=== PATIENT | male | born 1950 | race Caucasian/White ===

== ENCOUNTER 2022-02-04 13:36 | Inpatient (IN) | payer OTHER ==
[2022-02-04] MEDS ORDERED: ONDANSETRON *ODT* 4 MG TABLET SL PRN (16:06)
[2022-02-04] MEDS ORDERED: NICOTINE POLACRILEX 4 MG GUM BUC PRN (16:06)
[2022-02-04] MEDS ORDERED: MAGNESIUM HYDROX 2400MG/30ML ORAL SUSPENSION 30 ML CUP PO PRN (16:06)
[2022-02-04] MEDS ORDERED: ACETAMINOPHEN 325 MG TABLET (FP) PO PRN ×2 (16:06)
[2022-02-04] MEDS ORDERED: MAGNESIUM CITRATE 300 ML BOTTLE PO PRN (16:06)
[2022-02-04] MEDS ORDERED: LOPERAMIDE HCL 2 MG CAPSULE PO PRN (16:06)
[2022-02-04] MEDS ORDERED: MENTHOL/PHENOL 1 EACH UD MM PRN (16:06)
[2022-02-04] MEDS ORDERED: MAG HYDROX/AL HYDROX/SIMETH 30 ML UNIT-DOSE CUP PO PRN (16:06)
[2022-02-04] MEDS ORDERED: LORazepam 1 MG TABLET PO PRN (16:20)
[2022-02-04] MEDS ORDERED: LORazepam 2 MG TABLET PO ONE (16:20)
[2022-02-04] MEDS: hydrOXYzine PAMOATE 25 MG CAPSULE (FP) PO SCH ×2 (20:55→23:07)
[2022-02-04] MEDS: LORazepam 2 MG TABLET PO SCH ×2 (20:58→23:07)
[2022-02-04] MEDS ORDERED: MELATONIN 5 MG TABLETS PO SCH (22:00)
[2022-02-04] MEDS: THIAMINE HCL 100 MG TABLET (FP) PO SCH (23:07)
[2022-02-05] MEDS: hydrOXYzine PAMOATE 25 MG CAPSULE (FP) PO SCH ×5 (06:26→22:15)
[2022-02-05] MEDS: LORazepam 2 MG TABLET PO SCH ×4 (06:26→22:14)
[2022-02-05 10:02] LABS: BASO % 0.4 % (0-2.0); EOS % 0.9 % (0-4.5); HEMATOCRIT 38.7 % (35.4-49); HEMOGLOBIN 13.1 GM/dL (11.7-16.9); LYMPH % 36.8 % (8-40); MCH 29.8 pg (25.7-33.7); MCHC 33.8 g/dl (32.0-35.9); MEAN CELL VOLUME 88.2 fl (80-96); MONO % 9.8 % (3.8-10.2); NEUT % 52.1 % (42.8-82.8); PLATELET COUNT 269 10^3/uL (134-434); RBC 4.38 M/mm3 (4.00-5.60); RDW 15.6 % (11.9-15.9); WHITE BLOOD COUNT 6.5 K/mm3 (4.0-10.0)
[2022-02-05 10:05] LABS: ALBUMIN 3.4 g/dl (3.4-5.0); BLOOD UREA NITROGEN 11.5 mg/dL (7-18); CALCIUM 8.5 mg/dL (8.5-10.1)
[2022-02-05 10:08] LABS: CREATININE 0.9 mg/dL (0.55-1.3)
[2022-02-05 10:09] LABS: BILIRUBIN,TOTAL 0.7 mg/dL (0.2-1); TOT PROT 6.5 g/dl (6.4-8.2)
[2022-02-05] MEDS: PRENATAL VITAMINS W/ FOLIC ACID TABLET (FP) PO SCH (10:45)
[2022-02-05] MEDS: METHOCARBAMOL 500 MG TABLET PO PRN (10:46)
[2022-02-05] MEDS: FLUoxetine HCL 20 MG CAPSULE PO SCH (15:00)
[2022-02-05] MEDS: lamoTRIgine 100 MG TABLET PO SCH (15:01)
[2022-02-05] MEDS ORDERED: amLODIPine BESYLATE 5 MG TABLET (FP) PO SCH (15:45)
[2022-02-05] MEDS: amLODIPine BESYLATE 10 MG TABLET (FP) PO SCH (15:46)
[2022-02-05] MEDS: QUEtiapine FUMARATE 50 MG TABLET PO SCH (22:14)
[2022-02-05] MEDS: THIAMINE HCL 100 MG TABLET (FP) PO SCH (22:15)
[2022-02-06] MEDS: hydrOXYzine PAMOATE 25 MG CAPSULE (FP) PO SCH ×5 (06:38→22:12)
[2022-02-06] MEDS: LORazepam 1 MG TABLET PO SCH ×4 (06:39→23:41)
[2022-02-06 10:08] LABS: SARS-CoV-2 NAA Not Detected (Not Detected)
[2022-02-06] MEDS: PRENATAL VITAMINS W/ FOLIC ACID TABLET (FP) PO SCH (10:21)
[2022-02-06] MEDS: lamoTRIgine 100 MG TABLET PO SCH (10:22)
[2022-02-06] MEDS: FLUoxetine HCL 20 MG CAPSULE PO SCH (10:22)
[2022-02-06] MEDS: amLODIPine BESYLATE 10 MG TABLET (FP) PO SCH (10:23)
[2022-02-06] MEDS: QUEtiapine FUMARATE 50 MG TABLET PO SCH (22:12)
[2022-02-06] MEDS: THIAMINE HCL 100 MG TABLET (FP) PO SCH (22:12)
[2022-02-07] MEDS ORDERED: LORazepam 0.5 MG TABLET PO PRN
[2022-02-07] MEDS: LORazepam 0.5 MG TABLET PO SCH ×4 (05:49→22:52)
[2022-02-07] MEDS: hydrOXYzine PAMOATE 25 MG CAPSULE (FP) PO SCH ×5 (05:49→22:51)
[2022-02-07] MEDS: FLUoxetine HCL 20 MG CAPSULE PO SCH (10:11)
[2022-02-07] MEDS: lamoTRIgine 100 MG TABLET PO SCH (10:11)
[2022-02-07] MEDS: PRENATAL VITAMINS W/ FOLIC ACID TABLET (FP) PO SCH (10:11)
[2022-02-07] MEDS: METHOCARBAMOL 500 MG TABLET PO PRN ×2 (10:11→22:53)
[2022-02-07] MEDS: amLODIPine BESYLATE 10 MG TABLET (FP) PO SCH (10:11)
[2022-02-07] MEDS: THIAMINE HCL 100 MG TABLET (FP) PO SCH (22:51)
[2022-02-07] MEDS: QUEtiapine FUMARATE 50 MG TABLET PO SCH (22:51)
[2022-02-08] MEDS ORDERED: LORazepam 0.5 MG TABLET PO ONE (05:00)
[2022-02-08] MEDS: hydrOXYzine PAMOATE 25 MG CAPSULE (FP) PO SCH ×2 (05:27→10:28)
[2022-02-08 07:55] VITALS: BP 132/72; PULSE 66; TEMP 96.8
[2022-02-08] MEDS: PRENATAL VITAMINS W/ FOLIC ACID TABLET (FP) PO SCH (10:27)
[2022-02-08] MEDS: amLODIPine BESYLATE 10 MG TABLET (FP) PO SCH (10:28)
[2022-02-08] MEDS: FLUoxetine HCL 20 MG CAPSULE PO SCH (10:28)
[2022-02-08] MEDS: lamoTRIgine 100 MG TABLET PO SCH (10:28)
== END 2022-02-08 11:00 | disposition home or self-care (01) | DRG 897 ==
LOC: YASAS 13:36 → Y6N 19:33
PROVIDERS: ADMIT Allergy & Immunology; ATTEND Allergy & Immunology
PROC: HZ2ZZZZ Detoxification Services for Substance Abuse Treatment (ICD-10-PCS; principal; 2022-02-04)
DX: F10.230 Alcohol dependence with withdrawal, uncomplicated (principal); F31.81 Bipolar II disorder; F12.20 Cannabis dependence, uncomplicated; F17.210 Nicotine dependence, cigarettes, uncomplicated; F10.282 Alcohol dependence with alcohol-induced sleep disorder; F10.24 Alcohol dependence with alcohol-induced mood disorder; F43.10 Post-traumatic stress disorder, unspecified; I10 Essential (primary) hypertension; J44.9 Chronic obstructive pulmonary disease, unspecified; M19.90 Unspecified osteoarthritis, unspecified site; Z62.810 Personal history of physical and sexual abuse in childhood; Z87.19 Personal history of other diseases of the digestive system; Z86.11 Personal history of tuberculosis; Z88.6 Allergy status to analgesic agent; Z88.5 Allergy status to narcotic agent
CPT/HCPCS: 36415; 71046-TC-FY; 80053; 85025; 86780; 87811; C9803; U0003; U0005